=== PATIENT | female | born 1985 | race Caucasian/White ===

== ENCOUNTER 2022-04-16 21:12 | Emergency (ER) | payer BC ==
[~2022-04-16] VITALS: Ht 160 cm; Wt 81.6 kg
[2022-04-16] MEDS ORDERED: PREG75CA PO (21:30)
[2022-04-16] MEDS ORDERED: SERT25TA PO (21:30)
[2022-04-16] MEDS ORDERED: BUPR-96 PO (21:30)
[2022-04-16] MEDS ORDERED: VALA500T PO (21:30)
[2022-04-16] MEDS ORDERED: ADAL40KI SQ (21:30)
[2022-04-16] MEDS ORDERED: CEFAZOLIN 1 G VIAL ONE (22:00)
[2022-04-16] MEDS ORDERED: CEFAZOLIN 1 G in IV DEXTROSE 5% 50 ML IV ONE (22:00)
[2022-04-16] MEDS ORDERED: OXYC-128 PO (22:57)
[2022-04-16] MEDS ORDERED: CEPH500C2 PO (22:57)
--- NOTE | 2022-04-16 23:06 | NUR ---
Patient discharged to home in stable condition. Written and verbal after care instructions given. Patient verbalizes understanding of instructions. Stressed follow up or return to ER for worsening s/s. Patient is a/ox4, NAD noted. Patient is able to walk with steady gait
[2022-04-16 23:07] VITALS: BP 115/70
[2022-04-20] MEDS ORDERED: AMOX-430 PO (10:28)
[2022-04-20] MEDS ORDERED: LORA0.5T48 PO (10:56)
[2022-04-20] MEDS ORDERED: LACT1CAP71 PO (10:56)
[2022-04-20] MEDS ORDERED: ONDA4TAB5 PO (10:56)
== END 2022-04-16 23:07 | disposition home or self-care (01) ==
LOC: ER 21:12
DX: L03.116 Cellulitis of left lower limb (principal); L40.50 Arthropathic psoriasis, unspecified; R59.0 Localized enlarged lymph nodes; Z90.49 Acquired absence of other specified parts of digestive tract; Z79.899 Other long term (current) drug therapy
CPT/HCPCS: 99284; 96374; 87070; J0690; A4663

== ENCOUNTER 2022-04-19 11:08 | Inpatient (IN) | payer BC ==
[~2022-04-19] VITALS: Ht 160 cm; Wt 81.6 kg
[~2022-04-19 11:08] MED LIST: ADAL40KI SQ; BUPR-96 PO; CEPH500C2 PO; OXYC-128 PO; PREG75CA PO; SERT25TA PO; VALA500T PO
--- NOTE | 2022-04-19 11:29 | NUR ---
[email or web address], medical screening exam in progress
--- NOTE | 2022-04-19 12:15 | NUR ---
"Plan to admit" per Dr Watkins. ER registration/admitting staff Germaine notified.
[2022-04-19 12:47] LABS: HEMATOCRIT 39.8 % (31.2-41.9); MEAN CORPUSCULAR HEMOGLOBIN 29.3 uug (24.7-32.8); MEAN CORPUSCULAR VOLUME 87.1 fL (75.5-95.3); PLATELET COUNT (AUTO) 375 K/uL (179-408)
[2022-04-19 13:17] LABS: CREATININE 0.8 mg/dL (0.6-1.3); POTASSIUM 4.4 mmol/L (3.5-5.1)
[2022-04-19 13:22] LABS: BILIRUBIN,TOTAL 0.2 mg/dL (0.2-1.0); TOTAL PROTEIN, SERUM 7.6 g/dL (6.4-8.2)
--- NOTE | 2022-04-19 14:09 | NUR ---
Patient is resting comfortably on gurney with a female [email or web address].
--- NOTE | 2022-04-19 14:13 | NUR ---
"OK to eat" per Dr Watkins. Crackers and iced juice given.
--- NOTE | 2022-04-19 14:22 | NUR ---
ALEKSANDR Aponte ([facility] hospitalist)[email or web address].
[2022-04-19] MEDS ORDERED: MAGNESIUM HYDROXIDE 30 ML LIQUID UDC PO PRN (15:00)
[2022-04-19] MEDS ORDERED: ACETAMINOPHEN 325 MG TABLET PO PRN (15:00)
[2022-04-19] MEDS ORDERED: ONDANSETRON 4 MG/2 ML VIAL IV PRN (15:00)
[2022-04-19] MEDS ORDERED: REMEDY ESSENTIAL ZINC PASTE 113 GM TP PRN (15:00)
[2022-04-19] MEDS ORDERED: IOHEXOL 300MG/ML 100 ML INFUS..BTL ONE (15:57)
[2022-04-19] MEDS ORDERED: SWABABLE VALVE TRANSFER SET EA MC ONE (15:57)
[2022-04-19] MEDS ORDERED: IV NORMAL SALINE 250 ML IV ONE (15:58)
[2022-04-19 16:01] VITALS: BP 109/63
[2022-04-19] MEDS: PIPERACILLIN SODIUM/TAZOBACTAM 3.375 G in IV DEXTROSE 5% 100 ML IV SCH (16:49)
--- NOTE | 2022-04-19 16:50 | NUR ---
pt received from er via wheel chair to room 303 abscess on the left thigh .pt is axox4 brp .call light with in reach vs are stable . notified for the admission
[2022-04-19] MEDS ORDERED: PREG75CA PO (17:01)
[2022-04-19] MEDS ORDERED: LORAZEPAM 0.5 MG TABLET PO PRN (17:15)
[2022-04-19 20:00] VITALS: BP 97/54
[2022-04-19] MEDS ORDERED: PREGABALIN 50 MG CAPSULE PO SCH (21:00)
[2022-04-19] MEDS ORDERED: TRAMADOL HCL 50 MG TABLET PO ONE (21:30)
[2022-04-19] MEDS ORDERED: PIPERACILLIN SODIUM/TAZOBACTAM 3.375 G in IV DEXTROSE 5% 50 ML IV SCH (22:00)
[2022-04-20] MEDS: PIPERACILLIN SODIUM/TAZOBACTAM 3.375 G in IV DEXTROSE 5% 100 ML IV SCH ×2 (00:03→08:13)
[2022-04-20 04:00] VITALS: BP 94/50
[2022-04-20 06:33] LABS: POTASSIUM 3.8 mmol/L (3.5-5.1)
[2022-04-20 06:34] LABS: HEMATOCRIT 38.3 % (31.2-41.9); MEAN CORPUSCULAR HEMOGLOBIN 29.5 uug (24.7-32.8); MEAN CORPUSCULAR VOLUME 87.1 fL (75.5-95.3); PLATELET COUNT (AUTO) 402 K/uL (179-408)
[2022-04-20] MEDS ORDERED: SERTRALINE HCL 250 MG PO SCH (09:00)
[2022-04-20] MEDS ORDERED: VALACYCLOVIR HCL 500 MG TABLET PO SCH (09:00)
[2022-04-20] MEDS ORDERED: PREGABALIN 25 MG CAPSULE PO SCH (09:00)
[2022-04-20] MEDS ORDERED: buPROPion XL 150 MG TAB.SR.24H PO SCH (09:00)
[2022-04-20] MEDS ORDERED: SERTRALINE HCL 100 MG TABLET PO SCH (09:00)
[2022-04-20] MEDS ORDERED: Medication Not On Formulary EA (Pregabalin (Lyrica) 75 MG) PO SCH (09:00)
[2022-04-20] MEDS ORDERED: AMOX-430 PO (10:28)
[2022-04-20] MEDS ORDERED: LACT1CAP71 PO (10:56)
[2022-04-20] MEDS ORDERED: ONDA4TAB5 PO (10:56)
[2022-04-20] MEDS ORDERED: LORA0.5T48 PO (10:56)
[2022-04-20 11:42] VITALS: BP 95/44
--- NOTE | 2022-04-20 11:53 | NUR ---
dc orders received noted and carried out,dc instruction and education given to the pt ,pt said she will follow up with her pcp .dc heplock per md orders ,pt left the facility via private car in stable condition
== END 2022-04-20 11:55 | disposition home or self-care (01) | DRG 603 ==
LOC: ER 11:09 → MEDSURG3 15:23
PROVIDERS: ADMIT Nurse Practitioner Acute Care; ATTEND Nurse Practitioner Acute Care
DX: L03.116 Cellulitis of left lower limb (principal); L40.50 Arthropathic psoriasis, unspecified; I88.8 Other nonspecific lymphadenitis; E66.9 Obesity, unspecified; Z68.31 Body mass index [BMI] 31.0-31.9, adult; Z20.822 Contact with and (suspected) exposure to COVID-19
CPT/HCPCS: 36415; 85025; 85651; 86140; 87040; A4663; G0378; J2405; J2543; Q9967